=== PATIENT | female | born 1965 | race Caucasian/White ===

== ENCOUNTER 2020-09-30 09:30 | Outpatient (REF) | payer MEDICARE, MEDICAID, SELFPAY ==
[2020-09-30 10:24] LABS: Hematocrit 40.6 % (37-47); Mean Corpuscular Hemoglobin 28.9 pg (27.0-33.0); Mean Corpuscular Volume 90.2 fL (80-98); Mean Platelet Volume 10.3 fL (9.4-12.3); Platelet Count 230 X10*3/uL (160-400); Red Cell Distribution Width 13.1 % (11.0-16.0); White Blood Count 4.5 X10*3/uL (4.8-10.8)
[2020-09-30 10:45] LABS: Alanine Aminotransferase 15 U/L (0-31); Albumin Level 4.7 g/dL (3.5-5.0); Alkaline Phosphatase 86 U/L (39-117); Anion Gap 11 (12-20); Aspartate Amino Transferase 19 U/L (5-31); Bilirubin Total 0.7 mg/dL (0.0-1.0); Blood Urea Nitrogen 15 mg/dL (9-16); Calcium 9.5 mg/dL (8.4-10.2); Carbon Dioxide 30 mmol/L (22-29); Chloride 104 mmol/L (96-108); Estimated Glomerular Filt Rate > 60; Glucose Fasting 90 mg/dL (60-99); Iron 125 mcg/dL (30-160); Percent Iron Saturation 38 % (15-50); Potassium 4.4 mmol/L (3.3-5.1); Sodium 141 mmol/L (135-145); Total Iron Binding Capacity 328 mcg/dL (228-428); Total Protein 7.2 g/dL (6.5-8.0); Unsaturated Iron Binding 203 ug/dL
[2020-09-30 11:07] LABS: TSH reflex Free T4 1.49 uIU/mL (0.32-4.0)
== END 2020-09-30 09:31 | disposition home or self-care (01) ==
LOC: HO.LAB 09:30
PROVIDERS: PCP Internal Medicine; Visit Provider Internal Medicine
DX: I47.1 Supraventricular tachycardia (principal); I49.8 Other specified cardiac arrhythmias; K59.00 Constipation, unspecified
CPT/HCPCS: 36415; 80053; 83540; 84443; 85027

== ENCOUNTER 2020-11-22 11:21 | Outpatient (REF) | payer MEDICARE, MEDICAID, SELFPAY ==
[2020-11-22 14:10] LABS: C Reactive Protein 0.16 mg/dL (< or = 0.50); Rheumatoid Factor < 15.0 IU/mL (<15.0)
[2020-11-22 14:42] LABS: Erythrocyte Sedimentation Rate 6 MM/HR (0-20)
[2020-11-23 09:27] LABS: Lyme Abs Screen <0.90 index
[2020-11-23 13:53] LABS: Anti Nuclear Antibody Screen NEGATIVE (NEGATIVE)
[2020-11-23 16:17] LABS: Cyclic Citrullinated Peptide <16 UNITS
== END 2020-11-22 11:22 | disposition home or self-care (01) ==
LOC: HO.HMGCLDS 11:21
PROVIDERS: PCP Internal Medicine; Referring Provider Internal Medicine; Visit Provider Internal Medicine
DX: M19.90 Unspecified osteoarthritis, unspecified site (principal); Z20.822 Contact with and (suspected) exposure to COVID-19
CPT/HCPCS: 36415; 85652; 86038; 86039; 86140; 86200; 86431; 86618; C9803; U0003; U0005

== ENCOUNTER 2021-02-02 17:20 | Outpatient (REF) | payer MEDICARE, MEDICAID, SELFPAY ==
[2021-02-02 18:07] LABS: Hematocrit 37.5 % (37-47); Hemoglobin 12.1 g/dl (12.0-16.0); Mean Corpuscular HGB Conc 32.3 g/dl (31.0-35.0); Mean Corpuscular Volume 89.9 fL (80-98); Mean Platelet Volume 10.4 fL (9.4-12.3); Platelet Count 283 X10*3/uL (160-400); Red Blood Count 4.17 X10*6/uL (4.20-5.50); White Blood Count 5.7 X10*3/uL (4.8-10.8)
[2021-02-02 18:19] LABS: B Type Natriuretic Peptide 34 pg/mL (<100)
[2021-02-02 18:20] LABS: Alanine Aminotransferase 16 U/L (0-31); Albumin Level 4.6 g/dL (3.5-5.0); Alkaline Phosphatase 104 U/L (39-117); Anion Gap 9 (12-20); Aspartate Amino Transferase 22 U/L (5-31); Bilirubin Total 0.3 mg/dL (0.0-1.0); Blood Urea Nitrogen 13 mg/dL (9-16); Calcium 9.4 mg/dL (8.4-10.2); Carbon Dioxide 31 mmol/L (22-29); Chloride 105 mmol/L (96-108); Estimated Glomerular Filt Rate > 60; Glucose Random 99 mg/dL (60-115); Potassium 4.3 mmol/L (3.3-5.1); Sodium 141 mmol/L (135-145); Total Protein 7.3 g/dL (6.5-8.0)
[2021-02-02 18:34] LABS: TSH reflex Free T4 1.05 uIU/mL (0.32-4.0)
== END 2021-02-02 17:21 | disposition home or self-care (01) ==
LOC: HO.LAB 17:20
PROVIDERS: PCP Internal Medicine; Visit Provider Internal Medicine
DX: I49.8 Other specified cardiac arrhythmias (principal); I70.0 Atherosclerosis of aorta; R06.00 Dyspnea, unspecified
CPT/HCPCS: 36415; 80053; 83880; 84443; 85027

== ENCOUNTER → 2021-02-13 14:11 | Outpatient (REF) | payer MEDICARE, MEDICAID, SELFPAY ==
--- NOTE | 2021-02-13 14:17 | CA_ITS ---
Transthoracic Echocardiogram Patient (Last, First, Middle): Consuelo Branham, Gender: Female Date of : 1965 Age: 55 Procedure Date: 02/13/2021 Procedure Type: Transthoracic Echocardiogram Location: OP Height: 147.32 cm Weight: 68.04 kg BSA: 1.61 m2 Heart Rate: bpm BP: 146 / 100 mmHg [employer] Service Attendant: PATRICK Referring MD: Krissy Ivey MD Symptoms: I70.0 - Atherosclerosis of aorta Study Quality: Fair ECG Rhythm: Sinus Conclusions: - The left ventricular systolic function is normal. The calculated ejection fraction is 67% by biplane method. - No obvious valvular pathology seen on this study. - Top normal ascending aortic size at 3.5cm. Findings Left Ventricle Normal left ventricular cavity size. There is normal left ventricular wall thickness. The left ventricular systolic function is normal. The calculated ejection fraction is 67% by biplane method. There is no evidence of regional wall motion abnormalities. Diastolic function is normal for age. Right Ventricle Normal right ventricular cavity size and systolic function. Atria Both atria are normal in size. Aortic Valve The aortic valve was not well visualized. The aortic valve structure and function is likely normal. There is no aortic valve stenosis. There is no aortic valve regurgitation. Mitral Valve The mitral valve appears normal. There is trace mitral valve regurgitation. There is no mitral valve stenosis. Pulmonic Valve The pulmonic valve was not well visualized. Tricuspid Valve Normal tricuspid valve structure. There is mild tricuspid valve regurgitation. The pulmonary artery systolic pressure is normal. Great Vessels The aortic arch is normal in size. Top normal ascending aortic size at 3.5cm. Venous The inferior vena cava is normal in size and collapses greater than 50% with inspiration. Pericardium/Pleural There is no evidence of pericardial effusion. Prior Study Comparison Changes noted compared to prior study dated: 04/01/2018. Slight increase in ascending aortic size. Recommendations, Care & Conclusions No obvious valvular pathology seen on this study. Measurements M-Mode Liner Measurements Normals - Women/Men AOV Cusps: 1.50 1.5-2.6 cm/m2 2D Linear Measurements IVSd: 0.92 0.6-0.9/0.6-1.0 cm LVIDd: 4.32 3.9-5.3/4.2-5.9 cm LVIDd Index: 2.68 2.4-3.2/2.2-3.1 cm/m2 LVIDs: 2.52 2.0-3.6 cm LVPWd: 0.79 0.7-1.1 cm Ao Root: 2.80 2.1-3.5 cm LA Diam: 2.70 2.7-3.8/3.0-4.0 cm LAIDs Index: 1.68 1.5-2.3 cm/m2 LV Mass: 143.61 67-162/88-224 g LV Mass Index: 89.20 43-95/49-115 g/m2 LVOT Diam: 1.70 3.0+(-)1.3 cm 2D Systolic Function EF 4C: 67.60 >55% EF 2C: 68.10 >55% EF BiP: 67.40 >55% Mitral Valve MV Pk E: 0.73 MV PK A: 0.76 MV Decel Time: 229.00 E/A: 1.00 E'Lateral: 12.70 E'Medial: 7.72 E/E' Med: 9.40 E/E' Lat: 5.70 PHT: 67.00 MVA PHT: 3.28 Decel Rice: 3.18 Aortic Valve AoV Pk Talon: 1.64 AoV Mn Talon: 1.26 AoV VTI: 0.35 AoV Pk Grad: 11.00 Aov Mn Grad: 7.00 JACQUELINE Cont.VTI: 1.35 LVOT LVOT Pk Talon: 0.91 LVOT Mn Talon: 0.64 LVOT VTI: 0.21 LVOT Pk Grad: 3.00 LVOT Mn Grad: 2.00 LVOT Diam: 1.70 LVOT Area: 2.27 Diastolic Function MV Pk E: 0.73 MV Pk A: 0.76 E/A: 1.00 E'Medial: 7.72 E/E' Med: 9.40 E' Laterial: 12.70 E/E' Lat: 5.70 Tricuspid Valve TR Pk Talon: 2.44 TR Pk Grad: 24.00 RA Press: 3.00 RVSP: 27.00 Great Vessels Aorta Ao Root-2D: 2.80 2.0-3.7 cm Ao Asc: 3.50 2.1-3.4 cm Ao Arch: 2.40 Updated in Other Vendor System with Status of Final Gaetano Decker MD electronically signed on 02/14/2021 8:06:23 AM with status of Final
== END ==
LOC: HO.CARD 14:11
PROVIDERS: Visit Provider Internal Medicine
DX: I70.0 Atherosclerosis of aorta (principal); R06.00 Dyspnea, unspecified; I49.8 Other specified cardiac arrhythmias
CPT/HCPCS: 93306

== ENCOUNTER 2022-02-05 13:05 | Outpatient (REF) | payer MEDICARE, MEDICAID, SELFPAY ==
--- NOTE | ~2022-02-05 | XR_ITS ---
EXAMINATION: XR CHEST CLINICAL INFORMATION: Dyspnea COMPARISON: Previous chest x-ray July 2019 TECHNIQUE: 2 views of the chest were obtained. FINDINGS: The cardiac and mediastinal contours are stable. The lungs are clear. There is no pleural effusion or pneumothorax. Loop recorder projecting over the left chest is no longer seen. There are degenerative changes of the spine. XR/XR chest 2V IMPRESSION: No evidence for acute disease in the chest.
== END 2022-02-05 13:06 | disposition home or self-care (01) ==
LOC: HO.HMGCX 13:05
PROVIDERS: Visit Provider Internal Medicine
DX: R06.00 Dyspnea, unspecified (principal)
CPT/HCPCS: 71046

== ENCOUNTER 2022-04-10 11:10 | Outpatient (REF) | payer MEDICARE, MEDICAID, SELFPAY ==
[2022-04-10 13:55] LABS: Appearance Urine Clear; Color Urine Yellow; Glucose Urine UA Negative (Negative); Leukocyte Esterase Urine Negative (Negative); Nitrite Urine Negative (Negative); PH 7.5 (5.0-8.0); Specific Gravity - Urine <= 1.005 (1.005-1.025); Urine Blood Negative (Negative); Urine Ketones Negative (Negative); Urine Protein Negative (Neg-Trace)
[2022-04-10 14:24] LABS: Alanine Aminotransferase 14 U/L (0-31); Albumin Level 4.4 g/dL (3.5-5.0); Alkaline Phosphatase 103 U/L (39-117); Anion Gap 13 (12-20); Aspartate Amino Transferase 18 U/L (5-31); Bilirubin Total 0.2 mg/dL (0.0-1.0); Blood Urea Nitrogen 14 mg/dL (9-16); Calcium 9.4 mg/dL (8.4-10.2); Carbon Dioxide 28 mmol/L (22-29); Chloride 106 mmol/L (96-108); Estimated Glomerular Filt Rate > 60; Glucose Random 92 mg/dL (60-115); Iron 73 mcg/dL (30-160); Percent Iron Saturation 20 % (15-50); Potassium 4.2 mmol/L (3.3-5.1); Sodium 143 mmol/L (135-145); Total Iron Binding Capacity 360 mcg/dL (228-428); Total Protein 6.9 g/dL (6.5-8.0); Unsaturated Iron Binding 287 ug/dL
[2022-04-10 14:49] LABS: Ferritin 51 ng/mL (10-250); Vitamin D 25-OH Total 49.5 ng/mL (>30)
== END 2022-04-10 11:11 | disposition home or self-care (01) ==
LOC: HO.HMGCLDS 11:10
PROVIDERS: PCP Internal Medicine; Visit Provider Internal Medicine
DX: R30.0 Dysuria (principal); D50.9 Iron deficiency anemia, unspecified; M81.0 Age-related osteoporosis without current pathological fracture; E55.9 Vitamin D deficiency, unspecified
CPT/HCPCS: 36415; 80053; 81003; 82306; 82728; 83540

== ENCOUNTER 2023-06-05 12:54 | Outpatient (AMB) | payer MEDICARE, MEDICAID, SELFPAY ==
[2023-06-05 12:55] VITALS: BP 126/82; PULSE 68; O2SAT 100; BMI 31.2
--- NOTE | 2023-06-05 12:55 | MHC.PC.OV ---
Vital Signs 06/05/23 12:55 Height 4 ft 10.5 in Weight 152 lb BMI 31.2 BP 126/82 Blood Pressure Location Lt brachial Position Sitting Pulse 68 Pulse Source Pulse Oximeter Pulse Oximetry (%) 100 Oxygen Delivery Method Room Air Intake Visit Reasons: ER followup CDH-numbness Intake Note: Pt is here today for ER follow up visit. Allergies acetaminophen [From VICODIN] Allergy (Unknown, Verified 06/05/23 12:59) SHORTNESS OF BREATH, pruritis bee pollen [BEE STINGS] Allergy (Unknown, Verified 06/05/23 12:59) ANAPHYLAXIS celecoxib [From CELEBREX] Allergy (Unknown, Verified 06/05/23 12:59) SOB, chest pain cortisone [CORTISONE] Allergy (Unknown, Verified 06/05/23 12:59) SOB /CP / INCREASE HTN / RACING HEART hydrocodone [From VICODIN] Allergy (Unknown, Verified 06/05/23 12:59) SHORTNESS OF BREATH latex [LATEX] Allergy (Unknown, Verified 06/05/23 12:59) ANAPHYLAXIS meloxicam [MELOXICAM] Allergy (Unknown, Verified 06/05/23 12:59) UNKNOWN, chest pain , SOB oxycodone [From PERCOCET] Allergy (Unknown, Verified 06/05/23 12:59) PRURITIS peach [PEACHES] Allergy (Unknown, Verified 06/05/23 12:59) SWOLLEN LIPS egg Adverse Reaction (Unknown, Verified 06/05/23 12:59) stomach upset Tobacco use date assessed: 06/05/23 Dental Screening Dental Screen Date: 06/05/23 Did you have a dental visit in the last 12 months?: Yes Did you have a dental problem in the last 6 months where you did not have access to dental care?: No Was dental information given to patient?: Patient has dentist HPI ER followup CDH-numbness HPI Details Pt presents for f/u ER visit for L sided facial and L arm numbness. Work up was negative. Pt f/u with neurology and cardiology and has been on Eliquis for anticoagulation for paroxysmal A fib. [facility] Medical History Atherosclerosis of aorta Dyspnea on exertion Arthritis Vitreous floaters of left eye Constipation POTS (postural orthostatic tachycardia syndrome) Osteoporosis Osteoarthritis SVT (supraventricular tachycardia) Autonomic neuropathy Vitamin D deficiency Foot pain, left Surgical History H/O colonoscopy History of carpal tunnel release History of hernia repair H/O prior ablation treatment History of section History of bilateral tubal ligation History of knee surgery History of shoulder surgery Family History Father Afib Leukemia Mother Blood clotting disorder Son Crohn's disease Son No problems noted. Son No problems noted. Social History Housing: House Alcohol intake: current Alcohol intake frequency: holidays/special occasions only Patient Tobacco Use Status: Never used Tobacco e-Cigarette/Vaping Use: Never Used Current occupational status: disabled Cognitive needs: No Hearing needs: No Vision needs: Yes Questionnaire PHQ-9 Over the last 2 weeks, how often have you been bothered by any of the following problems? 52472 - PHQ-9 Billing: Patient declined-do not bill Source: Developed by Drs. Yamil Li, Cathryn Barton, Elliot Olivares and colleagues, with an educational chris from [employer]. Thrive Questionnaire Date Thrive assessed: 04/10/22 I am a: Patient What is your living situation today?: I have a steady place to live Within the past 12 months, did the food you bought not last and you didn't have the money to get more?: Never true Within the past 12 months, did you worry whether your food would run out before you got money to buy more?: Never true Please select the resources that you would like help with: None AUDIT C Alcohol Use Questionnaire (AUDIT-C) 1. How often do you have a drink containing alcohol?: Never 3. How often do you have six or more drinks on one occasion?: Never Total Score: 0 POLY-7 AMB Questionnaire POLY-7 Date POLY - 7 assessed: 06/05/23 Feeling nervous, anxious, or on edge: 0 = Not at all Not being able to stop or control worryin = Not at all Worrying too much about different things: 0 = Not at all Trouble relaxin = Not at all Being so restless that it is hard to sit still: 0 = Not at all Becoming easily annoyed or irritable: 0 = Not at all Feeling afraid as if something awful might happen: 0 = Not at all Total POLY-7 score (0-4 normal; 5-9 mild; 10-14 moderate; 15-21 severe): 0 Source: Developed by Drs. Yamil Li, Cathryn Barton, Elliot Olivares and colleagues, with an educational chris from [employer]. Review of Systems Const All systems reviewed & are unremarkable except as noted in HPI and below Reports no additional complaints Eyes Reports no additional complaints ENT Reports no additional complaints Card Reports no additional complaints Resp Reports no additional complaints GI Reports no additional complaints Reports no additional complaints Physical exam (Primary Care) Vital Signs: Last Vital Signs Pulse 68 06/05/23 12:55 BP 126/82 06/05/23 12:55 Pulse Ox 100 06/05/23 12:55 Oxygen Delivery Method Room Air 06/05/23 12:55 BMI result Body Mass Index 31.2 Tobacco/Smoking Status: Tobacco use Status Tobacco use date assessed 06/05/23 06/05/23 13:03 Patient Tobacco Use Status Never used Tobacco 06/05/23 13:03 e-Cigarette/Vaping Use Never Used 06/05/23 12:57 Thrive Assessment: Date of Thrive Assessment Date Thrive assessed 04/10/22 06/05/23 12:57 Const General: no acute distress HENMT Head: Yes normal to inspection Ears: hearing grossly normal bilaterally General nose exam: Normal external nose present Face and sinus: Yes normal facial exam Throat: Yes posterior oropharynx normal Eyes General: appearance normal, both eyes and all related structures Neck Neck: Yes no lymphadenopathy and Yes supple Resp Effort & Inspection: normal respiratory effort Auscultation: clear to auscultation bilaterally Cardio Rhythm: regular rhythm Heart sounds: S1 normal heart sound present and S2 normal heart sound present GI Inspection: Yes normal to inspection Palpation (GI): Soft to palpation Percussion: Yes normal to percussion Auscultation: normal bowel sounds Neuro Cranial nerves: Yes CN's II-XII intact bilaterally Gait exam (Neuro): Normal gait present Motor exam (neuro): 5/5 motor strength present throughout Assessment and Plan Assessment & Plan (1) POTS (postural orthostatic tachycardia syndrome): Code(s): I49.8 - Other specified cardiac arrhythmias Plan: cont current meds and f/u with cardiology Coding Level of Care Code Est Pt Level 3 (06244) Diagnoses POTS (postural orthostatic tachycardia syndrome) I49.8
== END 2023-06-05 14:47 | disposition home or self-care (01) ==
PROVIDERS: PCP Internal Medicine; Visit Provider Internal Medicine
DX: I49.8 Other specified cardiac arrhythmias (principal)
CPT/HCPCS: 99213